=== PATIENT | male | born 1940 ===

== ENCOUNTER 2016-08-18 03:19 | Inpatient (IN) | payer OTHER ==
[~2016-08-18] VITALS: Ht 172.7 cm; Wt 114.3 kg
[2016-08-18] VITALS (32 sets, daily range): BP systolic 77–173; BP diastolic 39–88; TEMP 97.5–99.8; Ht 172.7 cm; Wt 114.3 kg
[~2016-08-18 03:19] MED LIST: ACCU-CHEK; ADLT ASA LOW81 MG PO; AMLO2.5T PO; CARV25TA PO; FINA5TAB2 PO; FISH OIL1 C10 PO; FLUO10CA2 PO; GABA300C2 PO; HYDR25TA57 PO; HYDR25TA60 PO; IBUPROFEN IB200 MG PO; INSU100P SC; INSUINJP SC; INVEGA6 MG PO; LANTUS100 MG/ML SC; LEVO0.2T35 PO; LIPITOR10 MG PO; MELATONIN5 MG PO; MIRALAX3350 N1 PO; OLAN10TA2 PO; OLAN2.5T2 PO; OMEPRAZOLE40 MG PO; POTA20TA4 PO; PRAVACHOL20 MG PO; PRINIVIL10 MG PO; REFRESH TEARS0.5 % OP; TRAZ50TA36 PO; TRIA0.1C19 TOP; TRILEPTAL300 MG PO; XALATAN0.005 % OP; [UNRECOGNIZED DRUG - SUPPLY]
[2016-08-18] MEDS ORDERED: LEVO0.1224 PO (06:36)
[2016-08-18 07:42] LABS: PLATELET COUNT 202 K/uL (142-355)
[2016-08-18 07:43] LABS: POTASSIUM 4.1 mmol/L (3.6-5.2)
[2016-08-19] VITALS (24 sets, daily range): BP systolic 96–173; BP diastolic 48–89; TEMP 98–100.1
[2016-08-19 05:58] LABS: PLATELET COUNT 217 K/uL (142-355)
[2016-08-19 06:09] LABS: POTASSIUM 3.6 mmol/L (3.6-5.2)
[2016-08-20] VITALS (13 sets, daily range): BP systolic 101–142; BP diastolic 43–71; TEMP 97.5–99.1
[2016-08-20 05:46] LABS: PLATELET COUNT 222 K/uL (142-355)
[2016-08-20 06:17] LABS: POTASSIUM 3.6 mmol/L (3.6-5.2)
== END 2016-08-20 16:50 | disposition other institution (70) | DRG 204 ==
LOC: ICU 03:19
PROVIDERS: ADMIT Emergency Medicine
DX: R06.00 Dyspnea, unspecified (principal); E87.2 Acidosis; E11.9 Type 2 diabetes mellitus without complications; G20 Parkinson's disease; R09.02 Hypoxemia; R13.12 Dysphagia, oropharyngeal phase; S09.8XXA Other specified injuries of head, initial encounter; W19.XXXA Unspecified fall, initial encounter; Y93.89 Activity, other specified; Y92.238 Other place in hospital as the place of occurrence of the external cause; I10 Essential (primary) hypertension
CPT/HCPCS: 36415; 36600; 80053; 82550; 82570; 82805; 82962; 83735; 84300; 84484; 84540; 85027; 93005; 94640; 94664; 94760; 96372; J1650; J1940; J3475